=== PATIENT | male | born 1980 | race African-American/Black ===

== ENCOUNTER 2020-03-20 17:23 | Emergency (ER) | payer OTHER ==
[~2020-03-20] VITALS: Ht 177.8 cm; Wt 99.8 kg
[2020-03-20 17:40] VITALS: BP 136/85
--- NOTE | 2020-03-20 18:04 | NUR ---
PATIENT ELOPED BEFORE HE GOT SWABBED FOR COVID. HE SAID HE'LL COME BACK ON MONDAY BECAUSE HE HAS TO GO TO WORK TONIGHT.
== END 2020-03-20 18:06 | disposition home or self-care (01) ==
LOC: ER 17:29
DX: Z20.828 Contact with and (suspected) exposure to other viral communicable diseases (principal)

== ENCOUNTER 2020-03-26 04:32 | Emergency (ER) | payer OTHER ==
[~2020-03-26] VITALS: Ht 177.8 cm; Wt 102.1 kg
[2020-03-26 04:34] VITALS: BP 132/59
== END 2020-03-26 05:02 | disposition home or self-care (01) ==
LOC: ER 04:32
DX: Z20.828 Contact with and (suspected) exposure to other viral communicable diseases (principal)
CPT/HCPCS: 99283; C9803; U0003

== ENCOUNTER 2020-04-21 06:10 | Emergency (ER) | payer OTHER ==
[~2020-04-21] VITALS: Ht 177.8 cm; Wt 99.8 kg
[2020-04-21 06:12] VITALS: BP 127/84
--- NOTE | 2020-04-21 06:26 | NUR ---
NENOID SWABBED, SENT TO LAB.
== END 2020-04-21 06:30 | disposition home or self-care (01) ==
LOC: ER 06:12
DX: Z20.828 Contact with and (suspected) exposure to other viral communicable diseases (principal)
CPT/HCPCS: 99283; C9803; U0003

== ENCOUNTER 2020-04-28 01:55 | Emergency (ER) | payer OTHER ==
[~2020-04-28] VITALS: Ht 177.8 cm; Wt 99.8 kg
[2020-04-28 01:55] VITALS: BP 128/67
== END 2020-04-28 02:32 | disposition home or self-care (01) ==
LOC: ER 01:56
DX: Z20.828 Contact with and (suspected) exposure to other viral communicable diseases (principal)
CPT/HCPCS: 99283; C9803; U0003

== ENCOUNTER 2020-05-04 23:53 | Emergency (ER) | payer OTHER ==
[~2020-05-04] VITALS: Ht 177.8 cm; Wt 99.8 kg
[2020-05-05 00:03] VITALS: BP 132/64
== END 2020-05-05 00:30 | disposition home or self-care (01) ==
LOC: ER 23:54
DX: Z20.828 Contact with and (suspected) exposure to other viral communicable diseases (principal)
CPT/HCPCS: 99283; C9803; U0003